=== PATIENT | male | born 2000 | race Caucasian/White ===

== ENCOUNTER → 2019-06-30 | Outpatient (CLI) | payer BC ==
--- NOTE | 2019-07-01 10:27 | US ---
EXAMS DESCRIPTION: Renal sonogram Doppler sonogram of the renal arteries CLINICAL HISTORY: 18 years Male, ESSENTIAL(PRIMARY) HYPERTENSION COMPARISON: None. TECHNIQUE: Retroperitoneal sonogram was performed to evaluate the kidneys and bladder. FINDINGS: Right kidney Right renal length is 11 cm. Renal cortical thickness is normal but cortical echogenicity appears increased. Correlate with renal function tests. Relatively sonolucent pyramids. No right renal mass, cyst or shadowing stone. No hydronephrosis. Right renal Doppler findings Peripheral right renal artery peak systolic velocity is 116 cm/s. The mid right renal artery peak systolic velocity is 86 cm/s in the proximal right renal artery velocity is 10 9 cm/s. The aortic peak systolic velocity at the level of the renal artery origins is 141 cm/s. Positive color flow in the right renal artery and in the aorta. No direct evidence of renal artery stenosis. Left kidney Left renal length is 10.6 cm. Renal cortical thickness and echogenicity are normal. No left renal mass or shadowing stone. Small left renal cyst 1.9 centimeters. No hydronephrosis. Left renal Doppler findings Proximal left renal artery peak systolic velocity is 105 cm/s. Mid left renal artery peak systolic velocity is 89 cm/s and the distal left renal artery peak systolic velocity is 49 cm/s. These are normal compared to the aortic velocity at this level. No direct evidence of renal artery stenosis. Urinary bladder Bladder wall thickness is normal for degree of distention. No bladder mass. Bladder volume is measured as 100 cc. IMPRESSION: Hyperechoic kidneys. No hydronephrosis. Unremarkable appearance of the urinary bladder. No direct evidence of renal artery stenosis. Electronically signed by: Godfrey Hodge MD 07/01/2019 10:26 AM CDT
== END ==
LOC: US 13:22
PROVIDERS: ATTEND Family Medicine
DX: I10 Essential (primary) hypertension (principal)